=== PATIENT | female | born 1980 | race Hispanic/Latino ===

== ENCOUNTER → 2020-07-09 | Outpatient (CLI) | payer OTHER ==
[~2020-07-09] VITALS: Ht 157.5 cm; Wt 64.0 kg
[~2020-07-09] MED LIST: LACTATED RINGERS 1000ML 1,000 ML IV SCH
[2020-07-09 11:55] LABS: BASOPHILS % (AUTO) 0.4 % (0.0-5.0); EOSINOPHILS % (AUTO) 1.4 % (0.0-8.0); MEAN CORPUSCULAR HEMOGLOBIN 29.2 pg (27.0-33.0); MEAN CORPUSCULAR HGB CONC 33.6 g/dL (32.0-36.0); MONOCYTES % (AUTO) 5.6 % (3.0-13.0); NEUTROPHILS % (AUTO) 58.2 % (40.0-77.0); PLATELET COUNT (AUTO) 229 K/uL (130-400); RED BLOOD CELL COUNT(AUTO) 4.14 MIL/uL (4.00-5.50); RED CELL DISTRIBUTION WIDTH 13.9 % (11.0-15.5); WHITE BLOOD COUNT (AUTO) 4.8 K/uL (4.8-10.8)
== END ==
LOC: DAH 10:00 → EDSTATUS 10:00
PROVIDERS: ATTEND Obstetrics & Gynecology
DX: Z01.818 Encounter for other preprocedural examination (principal); Z01.812 Encounter for preprocedural laboratory examination; U07.1 COVID-19; Z30.2 Encounter for sterilization
CPT/HCPCS: 36415; 84703; 85025; 86850; 86900; 86901; A6260; C9803; U0003

== ENCOUNTER → 2020-10-13 | Outpatient (CLI) | payer OTHER ==
[~2020-10-13] VITALS: Ht 158.8 cm; Wt 62.3 kg
[~2020-10-13] MED LIST changes: +CEFAZOLIN SODIUM 1 GM VIAL IVP SCH; -LACTATED RINGERS 1000ML 1,000 ML IV SCH
--- NOTE | 2020-10-14 12:07 | NUR ---
POSITIVE COVID PCR 10/13/20 REPORTED I CALLED [facility] AND NOTIFIED HER OF RESULT I CALLED DR VALERA OFFICE AND SPOKE TO HIS NURSE STEPHANIE AND INFORMED HER OF POSITIVE PCR. I ATTEMPTED TO CALL PT AT THE NUMBER SHE PROVIDED-NO ANSWER. I THEN CALLED HER MOTHER AND ASKED HER TO HAVE PT RETURN CALL. NOTIFIED [facility] TO LET HER KNOW PT NOT ANSWERING
--- NOTE | 2020-10-15 07:38 | NUR ---
Pt returned call received yesterday; wanted to know Covid results; advised of Covid Positive result; advised to self quarantine and to practice safety techniques; advised to seek immediate medical attention if presented with increased SOB
[2020-10-19 13:47] LABS: BASOPHILS % (AUTO) 0.3 % (0.0-5.0); EOSINOPHILS % (AUTO) 0.8 % (0.0-8.0); HEMATOCRIT 40.2 % (36-48); LYMPHOCYTES % (AUTO) 35.6 % (21.0-51.0); MEAN CORPUSCULAR HEMOGLOBIN 28.5 pg (27.0-33.0); MEAN CORPUSCULAR HGB CONC 33.3 g/dL (32.0-36.0); MEAN CORPUSCULAR VOLUME 85.5 fL (79-99); MONOCYTES % (AUTO) 4.3 % (3.0-13.0); NEUTROPHILS % (AUTO) 58.8 % (40.0-77.0); PLATELET COUNT (AUTO) 218 K/uL (130-400); RED CELL DISTRIBUTION WIDTH 13.6 % (11.0-15.5)
[2020-10-19 15:26] VITALS: BP 117/71
--- NOTE | 2020-10-19 17:00 | NUR ---
SURGERY RECEIVED CALL FROM [facility] TECH PATIENT SURGERY CANCEL . PATIENT SELF CANCEL DUE TO WORK ISSUES. PT UNABLE TO GET DAY OFF FROM WORK.
== END | disposition home or self-care (01) ==
LOC: DAH 10:00 → EDSTATUS 10-20 09:00
PROVIDERS: ATTEND Obstetrics & Gynecology
DX: Z30.2 Encounter for sterilization (principal); U07.1 COVID-19; Z53.8 Procedure and treatment not carried out for other reasons
CPT/HCPCS: 36415; 84703; 85025; 86850; 86900; 86901; C9803; U0003

== ENCOUNTER 2020-12-08 05:30 | Day surgery (SDC) | payer OTHER ==
[2020-12-07 11:23] LABS: BASOPHILS % (AUTO) 0.4 % (0.0-5.0); EOSINOPHILS % (AUTO) 0.7 % (0.0-8.0); HEMATOCRIT 40.2 % (36-48); LYMPHOCYTES % (AUTO) 35.8 % (21.0-51.0); MEAN CORPUSCULAR HEMOGLOBIN 28.3 pg (27.0-33.0); MEAN CORPUSCULAR HGB CONC 33.6 g/dL (32.0-36.0); MEAN CORPUSCULAR VOLUME 84.3 fL (79-99); MONOCYTES % (AUTO) 5.5 % (3.0-13.0); NEUTROPHILS % (AUTO) 57.4 % (40.0-77.0); PLATELET COUNT (AUTO) 186 K/uL (130-400); RED BLOOD CELL COUNT(AUTO) 4.77 MIL/uL (4.00-5.50); WHITE BLOOD COUNT (AUTO) 4.5 K/uL (4.8-10.8)
[2020-12-07 12:35] VITALS: BP 127/75
[~2020-12-08] VITALS: Ht 156.2 cm; Wt 59.8 kg
[2020-12-08] VITALS (20 sets, daily range): BP systolic 112–147; BP diastolic 67–90
[~2020-12-08 05:30] MED LIST changes: -CEFAZOLIN SODIUM 1 GM VIAL IVP SCH; +LACTATED RINGERS 1000ML 1,000 ML IV ONE; +LEFL10TA19 PO; +LEVO100C4 PO; +LINA290C PO; +OMEP40CA21 PO
[2020-12-08] MEDS ORDERED: MIDAZOLAM HCL 1 MG/ML 2ML VIAL ONE (07:02)
[2020-12-08] MEDS ORDERED: PROPOFOL 10 MG/ML 20ML VIAL IV ONE (07:04)
[2020-12-08] MEDS ORDERED: LIDOCAINE HCL MPF 1% 5ML VIAL ONE (07:04)
[2020-12-08] MEDS ORDERED: ROCURONIUM 10MG/1ML SYR 10 MG/ML ML ONE (07:05)
[2020-12-08] MEDS ORDERED: FENTANYL CITRATE PF 50 MCG/1 ML 2ML VIAL ONE (07:05)
[2020-12-08] MEDS ORDERED: EPHEDRINE SULFATE 50 MG/ML AMPULE ONE (07:44)
[2020-12-08] MEDS ORDERED: GLYCOPYRROLATE 1 MG/5 ML SYRINGE ONE (07:47)
[2020-12-08] MEDS ORDERED: ESMOLOL HCL 10 MG/ML 10 ML VIAL ONE (07:52)
[2020-12-08] MEDS ORDERED: NEOSTIGMINE 5MG/5ML SYR IV ONE (07:53)
[2020-12-15] MEDS ORDERED: CYCL10TA16 PO (08:51)
[2021-09-06] MEDS ORDERED: FOLIC ACID PO (12:58)
[2021-09-06] MEDS ORDERED: LINA290C PO (12:58)
== END 2020-12-08 10:25 | disposition home or self-care (01) ==
LOC: DAH 05:30
PROVIDERS: ATTEND Obstetrics & Gynecology
DX: Z30.2 Encounter for sterilization (principal); E03.9 Hypothyroidism, unspecified; M06.9 Rheumatoid arthritis, unspecified; Z20.828 Contact with and (suspected) exposure to other viral communicable diseases; Z79.899 Other long term (current) drug therapy
CPT/HCPCS: 36415; 58670; 84703; 85025; 86850; 86900; 86901; A4215; A4221; A4222; A4223; A6260; C9803; J2250; J2704; J2710; J3010; J3490 ×4; J7120; U0003

== ENCOUNTER 2020-12-15 07:21 | Day surgery (SDC) | payer OTHER ==
[~2020-12-15] VITALS: Ht 154.9 cm; Wt 59.9 kg
[2020-12-15] VITALS (9 sets, daily range): BP systolic 106–123; BP diastolic 60–83
[~2020-12-15 07:21] MED LIST changes: -LACTATED RINGERS 1000ML 1,000 ML IV ONE; +LEFL10TA15 PO; -LEFL10TA19 PO; +OMEP40CA13 PO; -OMEP40CA21 PO; +SODIUM CHLORIDE 0.9% 1000ML 1,000 ML IV ONE
[2020-12-15] MEDS ORDERED: CYCL10 PO (08:51)
[2020-12-15] MEDS ORDERED: PROPOFOL 10 MG/ML 20ML VIAL IV ONE (11:00)
== END 2020-12-15 12:25 | disposition home or self-care (01) ==
LOC: ENDO 07:21 → DAH 07:21 → ENDO 12:25
PROVIDERS: ATTEND Internal Medicine
DX: R10.13 Epigastric pain (principal); Z20.828 Contact with and (suspected) exposure to other viral communicable diseases; K21.00 Gastro-esophageal reflux disease with esophagitis, without bleeding; K29.70 Gastritis, unspecified, without bleeding; K59.04 Chronic idiopathic constipation; J45.909 Unspecified asthma, uncomplicated; M06.9 Rheumatoid arthritis, unspecified; E03.9 Hypothyroidism, unspecified; Z87.19 Personal history of other diseases of the digestive system; Z80.0 Family history of malignant neoplasm of digestive organs; Z98.890 Other specified postprocedural states; Z79.899 Other long term (current) drug therapy; Z79.890 Hormone replacement therapy
CPT/HCPCS: 43239; A4215; A4221; A4222; A4223; A4606; A4620; A4663; C9803; J2704; J7030

== ENCOUNTER → 2021-03-03 | Outpatient (CLI) | payer OTHER ==
[~2021-03-03] MED LIST changes: +CYCL10 PO; -SODIUM CHLORIDE 0.9% 1000ML 1,000 ML IV ONE
== END | disposition home or self-care (01) ==
LOC: RAH 10:18
PROVIDERS: ATTEND Obstetrics & Gynecology
DX: Z12.31 Encounter for screening mammogram for malignant neoplasm of breast (principal)
CPT/HCPCS: 77067

== ENCOUNTER 2021-09-07 05:30 | Observation (INO) | payer OTHER ==
[2021-09-06 11:58] LABS: BASOPHILS % (AUTO) 0.4 % (0.0-5.0); EOSINOPHILS % (AUTO) 1.5 % (0.0-8.0); HEMATOCRIT 35.8 % (36-48); LYMPHOCYTES % (AUTO) 28.3 % (21.0-51.0); MEAN CORPUSCULAR HEMOGLOBIN 27.5 pg (27.0-33.0); MEAN CORPUSCULAR HGB CONC 32.1 g/dL (32.0-36.0); MEAN CORPUSCULAR VOLUME 85.6 fL (79-99); MONOCYTES % (AUTO) 5.9 % (3.0-13.0); NEUTROPHILS % (AUTO) 63.7 % (40.0-77.0); PLATELET COUNT (AUTO) 177 K/uL (130-400); RED BLOOD CELL COUNT(AUTO) 4.18 MIL/uL (4.00-5.50); RED CELL DISTRIBUTION WIDTH 13.6 % (11.0-15.5); WHITE BLOOD COUNT (AUTO) 5.5 K/uL (4.8-10.8)
[2021-09-06 12:35] VITALS: BP 108/66
[~2021-09-07] VITALS: Ht 154.9 cm; Wt 60.2 kg
[2021-09-07] VITALS (23 sets, daily range): BP systolic 92–129; BP diastolic 47–78
[~2021-09-07 05:30] MED LIST changes: -CYCL10 PO; +FOLIC ACID PO; -LEFL10TA15 PO; +LEFL10TA19 PO; -OMEP40CA13 PO
[2021-09-07] MEDS ORDERED: LACTATED RINGERS 1000ML 1,000 ML IV ONE (06:21)
[2021-09-07] MEDS ORDERED: CEFAZOLIN SODIUM 1 GM VIAL ONE (06:21)
[2021-09-07] MEDS ORDERED: LIDOCAINE PF 100MG/5ML (2%) SYRINGE 5ML ONE (07:54)
[2021-09-07] MEDS ORDERED: DEXAMETHASONE SOD PHOSPHATE 10MG/ML 1ML VIAL ONE (07:54)
[2021-09-07] MEDS ORDERED: ONDANSETRON 4MG INJ ONE (07:54)
[2021-09-07] MEDS ORDERED: NEOSTIGMINE 5MG/5ML SYR IV ONE (07:54)
[2021-09-07] MEDS ORDERED: PROPOFOL 10 MG/ML 20ML VIAL IV ONE (07:54)
[2021-09-07] MEDS ORDERED: GLYCOPYRROLATE 1 MG/5 ML SYRINGE ONE (07:54)
[2021-09-07] MEDS ORDERED: SUCCINYLCHOLINE 200MG/10ML SYR ONE (07:54)
[2021-09-07] MEDS ORDERED: ROCURONIUM 10MG/1ML SYR 10 MG/ML ML ONE (07:55)
[2021-09-07] MEDS ORDERED: FENTANYL CITRATE PF 50 MCG/1 ML 2ML VIAL ONE ×2 (07:55→08:47)
[2021-09-07] MEDS ORDERED: MEPERIDINE-PF 25 MG/ML SYG ONE ×2 (07:55→09:52)
[2021-09-07] MEDS ORDERED: MIDAZOLAM HCL 1 MG/ML 2ML VIAL ONE (07:55)
[2021-09-07] MEDS ORDERED: MEPERIDINE-PF 75 MG/ML SYG ONE (10:57)
[2021-09-07] MEDS ORDERED: SIMETHICONE 80 MG TAB.CHEW PO PRN (11:00)
[2021-09-07] MEDS ORDERED: MEPERIDINE-PF 75 MG/ML SYG IM PRN (11:00)
[2021-09-07] MEDS ORDERED: ACETAMINOPHEN WITH CODEINE 1 TAB TAB PO PRN (11:00)
[2021-09-07] MEDS ORDERED: BISACODYL 10 MG SUPP.RECT RC PRN (11:00)
[2021-09-07] MEDS ORDERED: LINZESS 290 MCG PO PRN (11:00)
[2021-09-07] MEDS ORDERED: PROMETHAZINE HCL 25 MG/ML 1ML AMPULE IM PRN (11:00)
[2021-09-07] MEDS ORDERED: ONDANSETRON 4MG INJ IVP PRN (11:00)
[2021-09-07] MEDS: DEXTROSE 5 %-0.45 % NACL 1,000 ML IV PRN ×2 (11:23→19:35)
[2021-09-07] MEDS: PROMETHAZINE HCL 25 MG/ML 1ML AMPULE IM PRN ×2 (11:23→16:24)
[2021-09-07] MEDS: DOCUSATE SODIUM 100 MG CAP PO PRN (21:08)
[2021-09-07] MEDS: IBUPROFEN 600 MG TABLET PO PRN (21:10)
[2021-09-08] MEDS: DEXTROSE 5 %-0.45 % NACL 1,000 ML IV PRN (01:12)
[2021-09-08 03:08] VITALS: BP 111/70
[2021-09-08 05:13] LABS: HEMATOCRIT 31.8 % (36-48); MEAN CORPUSCULAR HEMOGLOBIN 27.4 pg (27.0-33.0); MEAN CORPUSCULAR HGB CONC 32.1 g/dL (32.0-36.0); MEAN CORPUSCULAR VOLUME 85.5 fL (79-99); RED BLOOD CELL COUNT(AUTO) 3.72 MIL/uL (4.00-5.50); RED CELL DISTRIBUTION WIDTH 13.8 % (11.0-15.5); WHITE BLOOD COUNT (AUTO) 10.8 K/uL (4.8-10.8)
[2021-09-08] MEDS ORDERED: LEVOTHYROXINE 100 MCG TABLET ONE (05:27)
[2021-09-08] MEDS: IBUPROFEN 600 MG TABLET PO PRN (06:56)
[2021-09-08 07:14] VITALS: BP 117/70
[2021-09-08] MEDS: DOCUSATE SODIUM 100 MG CAP PO PRN (08:50)
[2021-09-08] MEDS ORDERED: LEFLUNOMIDE 10 MG PO SCH (09:00)
[2021-09-08] MEDS ORDERED: LEVOTHYROXINE 100 MCG TABLET PO SCH (09:00)
[2021-09-08] MEDS ORDERED: FOLIC ACID 1 MG TABLET PO SCH (09:00)
[2021-09-08] MEDS ORDERED: ACET1TAB25 PO (11:19)
[2021-09-08] MEDS ORDERED: FERR325T22 PO (11:20)
[2021-09-08 11:31] VITALS: BP 116/68
== END 2021-09-08 11:45 | disposition home or self-care (01) ==
LOC: DAH 05:30 → WSH 05:31 → DAH 05:31 → WSH 10:30
PROVIDERS: ADMIT Obstetrics & Gynecology; ATTEND Obstetrics & Gynecology
DX: N92.1 Excessive and frequent menstruation with irregular cycle (principal); Z20.822 Contact with and (suspected) exposure to COVID-19; D50.9 Iron deficiency anemia, unspecified; N85.2 Hypertrophy of uterus; K46.9 Unspecified abdominal hernia without obstruction or gangrene; N83.00 Follicular cyst of ovary, unspecified side; Z79.899 Other long term (current) drug therapy
CPT/HCPCS: 36415 ×2; 58263; 85025; 85027; 86850; 86900; 86901; 87635; 96372; 96374; A4215; A4221; A4222; A4223; A4351; A4510; A4600; A4606; A4663; A6260; C9803; G0378 ×21; J0330; J0690; J1100; J2001; J2175 ×4; J2250; J2405 ×2; J2550; J2704; J2710; J3010 ×2; J3490; J7120 ×2

== ENCOUNTER → 2023-06-26 | Outpatient (CLI) | payer OTHER ==
[~2023-06-26] MED LIST changes: +ACET-2079 PO; +FERR325T22 PO
== END | disposition home or self-care (01) ==
LOC: RAH 10:32
PROVIDERS: ATTEND Obstetrics & Gynecology
DX: Z12.31 Encounter for screening mammogram for malignant neoplasm of breast (principal)
CPT/HCPCS: 77067